=== PATIENT | male | born 2005 | race Caucasian/White ===

== ENCOUNTER → 2024-03-22 | Outpatient (CLI) | payer OTHER ==
[2024-03-22 11:07] LABS: HEMATOCRIT 45.2 % (42.0-52.0); HEMOGLOBIN 15.2 g/dl (13.5-17.5); MEAN CORPUSCULAR HEMOGLOBIN 29.2 pg (27.0-33.0); MEAN CORPUSCULAR HGB CONC 33.6 g/dl (32.0-36.5); MEAN CORPUSCULAR VOLUME 86.8 fl (80.0-96.0); PLATELET COUNT, AUTOMATED 305 10^3/uL (150-450); RED BLOOD COUNT 5.21 10^6/uL (4.30-6.10); WHITE BLOOD COUNT 6.3 10^3/uL (4.0-10.0)
[2024-03-22 11:41] LABS: BLOOD UREA NITROGEN 17 MG/DL (9-23); CALCIUM LEVEL 9.5 MG/DL (8.5-10.1); CARBON DIOXIDE LEVEL 31 MMOL/L (20-31); CHLORIDE LEVEL 104 MMOL/L (98-107); CREATININE FOR GFR 1.09 MG/DL (0.70-1.30); GLOMERULAR FILTRATION RATE > 60.0 (>60); GLUCOSE, FASTING 106 MG/DL (60-100); POTASSIUM SERUM 4.4 MMOL/L (3.5-5.1); SODIUM LEVEL 140 MMOL/L (136-145)
== END ==
LOC: M LAB 10:27
PROVIDERS: ATTEND Physician Assistant
DX: D22.39 Melanocytic nevi of other parts of face (principal)

== ENCOUNTER 2024-04-21 07:13 | Day surgery (SDC) | payer OTHER ==
[~2024-04-21] VITALS: Ht 175.3 cm; Wt 81.7 kg
[~2024-04-21 07:13] MED LIST: THERTAB52 PO
[2024-04-21] MEDS ORDERED: propofoL 200 MG/20 ML VIAL As Ordered ONE (07:43)
[2024-04-21] MEDS ORDERED: ONDANSETRON 4MG 2ML VIAL As Ordered ONE (07:43)
[2024-04-21] MEDS ORDERED: LIDOCAINE 2% 100MG/5ML SDV (FOR ANES.) As Ordered ONE (07:43)
[2024-04-21] MEDS ORDERED: MIDAZOLAM INJ 2MG/2ML VIAL As Ordered ONE (07:43)
[2024-04-21] MEDS ORDERED: fentaNYL 100 MCG/2 ML INJECTION As Ordered ONE (07:44)
[2024-04-21] MEDS ORDERED: MELA5TAB21 PO (07:51)
[2024-04-21] MEDS ORDERED: LR 1,000 ML IV SCH ×2 (07:55→11:55)
[2024-04-21] MEDS ORDERED: dexmedeTOMIDine (4MCG/ML)200MCG/50ML BTL (PRECEDEX) As Ordered ONE (09:33)
[2024-04-21] MEDS ORDERED: POVIDONE-IODINE 5% OPHTH PREP SOL 30ML As Ordered ONE (10:19)
[2024-04-21] MEDS ORDERED: ACETAMINOPHEN 1000MG 100ML IV BAG As Ordered ONE (10:59)
[2024-04-21] MEDS: ceFAZolin SOD 2 GM in IV 1 EA IV ONE (11:00)
[2024-04-21] MEDS ORDERED: ePHEDrine SULFATE 25 MG/5 ML(5MG/ML) SYRINGE As Ordered ONE (11:02)
[2024-04-21] MEDS: LIDOCAINE 2% W/EPINEPHRINE 20ML VIAL **PRES FREE As Ordered ONE (11:41)
[2024-04-21] MEDS ORDERED: ONDANSETRON 4MG 2ML VIAL IV PRN (11:55)
[2024-04-21] MEDS ORDERED: fentaNYL 100 MCG/2 ML INJECTION IV PRN (11:55)
[2024-04-21 13:44] VITALS: BP 127/74; TEMP 97.3; O2SAT 96
== END 2024-04-21 13:46 | disposition home or self-care (01) ==
LOC: M SDC 07:13 → EDUNIT# 11:00 → M SDC 13:46
PROVIDERS: ATTEND Plastic Surgery Surgery of the Hand
DX: D22.39 Melanocytic nevi of other parts of face (principal); F17.290 Nicotine dependence, other tobacco product, uncomplicated; Z88.2 Allergy status to sulfonamides; Z88.8 Allergy status to other drugs, medicaments and biological substances; Z88.6 Allergy status to analgesic agent; Z88.1 Allergy status to other antibiotic agents

== ENCOUNTER 2024-06-14 07:10 | Day surgery (SDC) | payer OTHER ==
[~2024-06-14] VITALS: Ht 175.3 cm; Wt 77.1 kg
[~2024-06-14 07:10] MED LIST changes: +MELA5TAB21 PO
[2024-06-14 07:42] LABS: HEMATOCRIT 45.1 % (42.0-52.0); HEMOGLOBIN 15.3 g/dl (13.5-17.5); MEAN CORPUSCULAR HEMOGLOBIN 29.5 pg (27.0-33.0); MEAN CORPUSCULAR HGB CONC 33.9 g/dl (32.0-36.5); MEAN CORPUSCULAR VOLUME 86.9 fl (80.0-96.0); PLATELET COUNT, AUTOMATED 269 10^3/uL (150-450); RED BLOOD COUNT 5.19 10^6/uL (4.30-6.10); WHITE BLOOD COUNT 4.9 10^3/uL (4.0-10.0)
[2024-06-14] MEDS ORDERED: LR 1,000 ML IV SCH ×2 (07:55→10:50)
[2024-06-14 08:08] LABS: BLOOD UREA NITROGEN 16 MG/DL (9-23); CALCIUM LEVEL 9.1 MG/DL (8.5-10.1); CARBON DIOXIDE LEVEL 31 MMOL/L (20-31); CHLORIDE LEVEL 108 MMOL/L (98-107); CREATININE FOR GFR 1.08 MG/DL (0.70-1.30); GLOMERULAR FILTRATION RATE > 60.0 (>60); GLUCOSE, FASTING 91 MG/DL (60-100); POTASSIUM SERUM 4.3 MMOL/L (3.5-5.1); SODIUM LEVEL 139 MMOL/L (136-145)
[2024-06-14] MEDS: ceFAZolin SOD 2 GM in IV 1 EA IV ONE (09:46)
[2024-06-14] MEDS ORDERED: LIDOCAINE 2% 100MG/5ML SDV (FOR ANES.) As Ordered ONE (09:49)
[2024-06-14] MEDS ORDERED: ACETAMINOPHEN 1000MG 100ML IV BAG As Ordered ONE (09:49)
[2024-06-14] MEDS ORDERED: MIDAZOLAM INJ 2MG/2ML VIAL As Ordered ONE (09:49)
[2024-06-14] MEDS ORDERED: propofoL 200 MG/20 ML VIAL As Ordered ONE (09:49)
[2024-06-14] MEDS ORDERED: fentaNYL 100 MCG/2 ML INJECTION As Ordered ONE (09:49)
[2024-06-14] MEDS ORDERED: dexmedeTOMIDine (4MCG/ML)200MCG/50ML BTL (PRECEDEX) As Ordered ONE (09:49)
[2024-06-14] MEDS ORDERED: ONDANSETRON 4MG 2ML VIAL As Ordered ONE (09:51)
[2024-06-14] MEDS: POVIDONE-IODINE 5% OPHTH PREP SOL 30ML As Ordered ONE (09:58)
[2024-06-14] MEDS: BACITRACIN OINTMENT 30GM TUBE As Ordered ONE (10:33)
[2024-06-14] MEDS: LIDOCAINE 2% W/EPINEPHRINE 20ML VIAL **PRES FREE As Ordered ONE (10:35)
[2024-06-14] MEDS ORDERED: HYDROMORPHONE HCL 0.5 MG/ 0.5 ML SYRINGE IV PRN (10:50)
[2024-06-14] MEDS ORDERED: fentaNYL 100 MCG/2 ML INJECTION IV PRN (10:50)
[2024-06-14] MEDS ORDERED: ONDANSETRON 4MG 2ML VIAL IV PRN (10:50)
[2024-06-14] MEDS ORDERED: oxyCODONE 5MG TAB PO PRN (10:50)
[2024-06-14 12:40] VITALS: BP 124/72; TEMP 97.2; O2SAT 99
== END 2024-06-14 12:47 | disposition home or self-care (01) ==
LOC: M SDC 07:10
PROVIDERS: ATTEND Plastic Surgery Surgery of the Hand
DX: D22.39 Melanocytic nevi of other parts of face (principal); L90.5 Scar conditions and fibrosis of skin; Z88.8 Allergy status to other drugs, medicaments and biological substances; Z88.1 Allergy status to other antibiotic agents; Z88.2 Allergy status to sulfonamides; F17.290 Nicotine dependence, other tobacco product, uncomplicated
CPT/HCPCS: 11441; 12051; 36415; 80048; 85027; 88305; J0131; J0690; J1100; J2250; J2405; J3010